=== PATIENT | male | born 1960 | race American Indian/Alaskan Native ===

== ENCOUNTER 2017-08-24 06:08 | Inpatient (IN) | payer OTHER ==
[2017-08-24] MEDS ORDERED: PROVENTIL IH ONE (06:19)
[2017-08-24] MEDS ORDERED: DUONEB *Not for PRN Use IH ONE (07:06)
--- NOTE | 2017-08-24 07:06 | Emergency Department Report ---
HPI - General Chief Complaint: Dyspnea/Respdistress Time Seen by Provider: 08/24/17 07:01 - HPI HPI: This is a 56-year-old male who presents to the emergency department from home with complaint of shortness of breath that woke him from sleep. He did not take anything for his symptoms prior to presentation. He is feeling slightly better but still has some mild shortness of breath. He had some mild chest discomfort at the same time. He presents with very elevated blood pressure. He has a history of diabetes, CVA, hypertension, sleep apnea. While he says he did sleep with the CPAP machine this evening, he is otherwise been noncompliant with his medications. He does not have a primary care physician. He is a tobacco smoker but denies any illicit drug use. No recent travel or sick contacts at home. ED Past Medical Hx - Past Medical History Hx Hypertension: Yes Hx CVA: Yes Hx Diabetes: Yes Additional medical history: Sleep Apnea - Surgical History Hx Appendectomy: Yes - Social History Smoking Status: Current Every Day Smoker Substance Use Type: None - Medications Home Medications: Home Medications Medication Instructions Recorded Confirmed Last Taken Type Aspirin BABY CHEW TAB 81 mg PO DAILY 08/24/17 08/24/17 Unknown History Insulin Glargine,Hum.rec.anlog 20 unit SQ DAILY 08/24/17 08/24/17 Unknown History [Lantus] Lisinopril 20 mg PO DAILY 08/24/17 08/24/17 Unknown History metFORMIN 1,000 mg PO BID 08/24/17 08/24/17 Unknown History ED Review of Systems ROS: Stated complaint: WES,SOB Other details as noted in HPI Comment: All other systems reviewed and negative Constitutional: denies: chills, fever Eyes: denies: eye pain, eye discharge, vision change ENT: denies: ear pain, throat pain Respiratory: shortness of breath. denies: cough Cardiovascular: chest pain. denies: palpitations Gastrointestinal: denies: abdominal pain, nausea, diarrhea Genitourinary: denies: urgency, dysuria Musculoskeletal: denies: back pain, joint swelling, arthralgia Skin: denies: rash, lesions Neurological: denies: headache, weakness, paresthesias Physical Exam - Physical Exam Vital Signs: Vital Signs 08/24/17 08/24/17 06:19 06:32 Temperature 97.8 F Pulse Rate 99 H Pulse Rate [ 85 Anterior Bilateral Throughout] Respiratory 28 H Rate Respiratory 20 Rate [Anterior Bilateral Throughout] Blood Pressure 208/107 O2 Sat by Pulse 88 Oximetry Physical Exam: GENERAL: The patient is well-developed well-nourished. HENT: Normocephalic. Atraumatic. Patient has moist mucous membranes. EYES: Extraocular motions are intact. Pupils equal reactive to light bilaterally. NECK: Supple. Trachea is midline. CHEST/LUNGS: Slightly coarse breath sounds. There is tachypnea but no excessive muscle use. There is no respiratory distress noted. HEART/CARDIOVASCULAR: Regular. There is no tachycardia. There is no gallop rub or murmur. ABDOMEN: Abdomen is soft, nontender. Patient has normal bowel sounds. There is no abdominal distention. Obese habitus. SKIN: Mild pitting edema to the bilateral distal lower extremities. NEURO: The patient is awake, alert, and oriented. The patient is cooperative. The patient has no focal neurologic deficits. The patient has normal speech. MUSCULOSKELETAL: There is no tenderness or deformity. There is no limitation range of motion. There is no evidence of acute injury. ED Course Vital Signs 08/24/17 08/24/17 06:19 06:32 Temperature 97.8 F Pulse Rate 99 H Pulse Rate [ 85 Anterior Bilateral Throughout] Respiratory 28 H Rate Respiratory 20 Rate [Anterior Bilateral Throughout] Blood Pressure 208/107 O2 Sat by Pulse 88 Oximetry ED Medical Decision Making - Lab Data Result diagrams: 08/24/17 07:01 08/24/17 07:01 - EKG Data -: EKG Interpreted by Me EKG shows normal: sinus rhythm, axis (LAD), intervals, QRS complexes (left anterior fascicular block, LVH, isolated T wave inversion to lead 1) Rate: normal - EKG Data When compared to previous EKG there are: previous EKG unavailable Interpretation: other (sinus rhythm, left axis deviation, left anterior fascicular block, LVH) - Radiology Data Radiology results: report reviewed, image reviewed interpreted by me: Chest x-ray shows some mild cardiomegaly and pulmonary vascular congestion. No obvious pneumonia. CT angiography of the chest including 3-D reconstructed images. History: Shortness of breath. Findings: The contrast bolus is suboptimal, but no evidence of pulmonary emboli is seen. There are bilateral pleural effusions, larger on the right. Several small blebs are seen bilaterally. Prominence of the interstitium is seen in the lower lung zones. Prominent lymph nodes are seen in the left para-aortic region. Impression: 1. No evidence of pulmonary emboli with above-described technical limitations. 2. Bilateral pleural effusions. Transcribed By: FAROOQ Dictated By: JONNY BUNN MD Electronically Authenticated By: JONNY BUNN MD Signed Date/Time: 08/24/17 0836 - Medical Decision Making This patient presented with some acute shortness breath started earlier this morning as well as some mild chest pain. EKG shows a left anterior fascicular block but no ST elevation MD. First troponin was negative. BNP was greater than 500. D-dimer was elevated and equivocal so CT angiography of the chest was done that did not show any pulmonary embolism or dissection but did show bilateral pleural effusions. He was given some aspirin to protect the heart, Lasix to start diuresis and will be admitted to the hospital for further evaluation and treatment and has been accepted for admission by the hospitalist service. - Differential Diagnosis CHF, MD, PE, pneumonia Critical Care Time: No Critical care attestation.: If time is entered above; I have spent that time in minutes in the direct care of this critically ill patient, excluding procedure time. ED Disposition Clinical Impression: Hypertensive urgency, Shortness of breath Chest pain Qualifiers: Chest pain type: unspecified Qualified Code(s): R07.9 - Chest pain, unspecified CHF (congestive heart failure) Qualifiers: Congestive heart failure type: unspecified congestive heart failure type Congestive heart failure chronicity: acute Qualified Code(s): I50.9 - Heart failure, unspecified Disposition: OP ADMIT IP TO THIS HOSP Is pt being admited?: Yes Condition: Stable Instructions: Chest Pain (ED) Referrals: PRIMARY CARE, [Primary Care Provider] - 3-5 Days Time of Disposition: 11:26
[2017-08-24 07:29] LABS: Basophils % (Auto) 0.8 % (0.0-1.8); Eosinophils % (Auto) 2.5 % (0.0-4.3); Hematocrit 43.8 % (35.5-45.6); Hemoglobin 14.7 gm/dl (11.8-15.2); Mean Corpuscular HGB Conc 34 % (32-34); Mean Corpuscular Hemoglobin 31 pg (28-32); Mean Corpuscular Volume 94 fl (84-94); Platelet Count 144 K/mm3 (140-440); Red Blood Count 4.68 M/mm3 (3.65-5.03); Red Cell Distribution Width 13.3 % (13.2-15.2); White Blood Count 5.9 K/mm3 (4.5-11.0)
[2017-08-24 07:35] LABS: Anion Gap 18 mmol/L; BUN/Creatinine Ratio 13; Blood Urea Nitrogen 13 mg/dL (9-20); Calcium 8.7 mg/dL (8.4-10.2); Carbon Dioxide 26 mmol/L (22-30); Chloride 99.2 mmol/L (98-107); Glucose 237 mg/dL (75-100); Potassium 4.1 mmol/L (3.6-5.0); Sodium 139 mmol/L (137-145)
[2017-08-24] MEDS ORDERED: NACL ONE (07:59)
--- NOTE | 2017-08-24 08:51 | Cat Scan Report ---
CT angiography of the chest including 3-D reconstructed images. History: Shortness of breath. Findings: The contrast bolus is suboptimal, but no evidence of pulmonary emboli is seen. There are bilateral pleural effusions, larger on the right. Several small blebs are seen bilaterally. Prominence of the interstitium is seen in the lower lung zones. Prominent lymph nodes are seen in the left para-aortic region. Impression: 1. No evidence of pulmonary emboli with above-described technical limitations. 2. Bilateral pleural effusions.
--- NOTE | 2017-08-24 09:07 | XRay Report ---
CHEST 2 VIEWS INDICATION: Shortness of breath. COMPARISON: None similar at this institution. FINDINGS: Frontal and lateral chest radiographs demonstrate slight exaggerated cardiomediastinal silhouette and grossly clear lungs, given the technique. Minimal fluid or thickening along the right minor fissure. Intact bones. CONCLUSION: No significant acute chest process, as described. Thank you for the opportunity to participate in this patient's care.
[2017-08-24] MEDS ORDERED: LASIX IV ONE (09:21)
--- NOTE | 2017-08-24 11:16 | History and Physical Report ---
History of Present Illness Date of examination: 08/24/17 Date of admission: 08/24/2017 Chief complaint: Shortness of breath History of present illness: Patient is a 56 years old male with past medical history of hypertension, diabetes mellitus, COPD and smoker who presents to the emergency department with complaining of shortness of breath. Until yesterday patient was at his normal baseline state of health. Patient developed difficulty of breathing yesterday and he has had progressive worsening of shortness of breath. This morning while going to the bathroom, shortly after, he felt like he could not catch his breath and got worried so called 911 and brought him to the Emergency Department. She is not on oxygen at home. He denies chest pain. Patient denies she has had no fevers, chills, or night sweats. No hx of recurrent pneumonia. He has no sick contact, TB exposure. He use to have 1-2 pillow, orthopnea and PEREZ but is currently denying PND, abdominal distention, or peripheral edema. Past History Past Medical History: diabetes, hypertension Past Surgical History: No surgical history Social history: smoking. denies: alcohol abuse Family history: diabetes, hypertension Medications and Allergies Allergies Allergy/AdvReac Type Severity Reaction Status Date / Time No Known Allergies Allergy Verified 08/24/17 07:14 Home Medications Medication Instructions Recorded Confirmed Last Taken Type Aspirin BABY CHEW TAB 81 mg PO DAILY 08/24/17 08/24/17 Unknown History Insulin Glargine,Hum.rec.anlog 20 unit SQ DAILY 08/24/17 08/24/17 Unknown History [Lantus] Lisinopril 20 mg PO DAILY 08/24/17 08/24/17 Unknown History metFORMIN 1,000 mg PO BID 08/24/17 08/24/17 Unknown History Active Meds: Active Medications Acetaminophen (Tylenol) 650 mg PO Q4H PRN PRN Reason: Pain MILD(1-3)/Fever >100.5/KENNEDY Bisacodyl (Dulcolax) 10 mg MN QDAY PRN PRN Reason: Constipation unrelieved by MOM Review of Systems Constitutional: no weight loss, no weight gain, no fever, no chills Ears, nose, mouth and throat: no ear pain, no ear discharge, no decreased hearing, no nose pain Cardiovascular: shortness of breath, dyspnea on exertion, no chest pain, no orthopnea Respiratory: cough, shortness of breath, dyspnea on exertion Gastrointestinal: no diarrhea, no constipation, no change in bowel habits Genitourinary Male: no discharge, no urinary frequency, no urinary hesitancy, no nocturia Musculoskeletal: no shooting arm pain, no arm numbness/tingling, no low back pain Integumentary: no sores, no wounds, no jaundice Neurological: no parathesias, no numbness, no tingling, no seizures Psychiatric: no change in sleep habits, no sleep disturbances, no insomnia, no hypersomnia, no change in appetite Endocrine: no excessive thirst, no polydipsia, no polyuria, no nocturia Hematologic/Lymphatic: no easy bruising, no easy bleeding Allergic/Immunologic: no allergic rhinitis, no wheezing Exam - Constitutional Vitals: Temp Pulse Resp BP Pulse Ox 99.5 F 81 15 175/106 100 08/24/17 07:25 08/24/17 09:30 08/24/17 09:30 08/24/17 09:30 08/24/17 09:30 General appearance: Present: mild distress, other (on 2LNC with Spo2>95%) - EENT Eyes: Present: PERRL ENT: hearing intact - Neck Neck: Present: supple - Respiratory Respiratory effort: normal Respiratory: bilateral: rales, wheezing - Cardiovascular Rhythm: regular Heart Sounds: Present: S1 & S2 - Abdominal General gastrointestinal: Present: soft, non-tender Male genitourinary: Present: deferred - Rectal Rectal Exam: deferred - Integumentary Integumentary: Present: clear, warm, dry - Musculoskeletal Musculoskeletal: strength equal bilaterally - Psychiatric Psychiatric: appropriate mood/affect - Neurologic Neurologic: CNII-XII intact - Allied Health Allied health notes reviewed: nursing Results - Labs CBC & Chem 7: 08/24/17 07:01 08/24/17 07:01 Labs: Laboratory Last Values WBC 5.9 K/mm3 (4.5-11.0) 08/24/17 07:01 RBC 4.68 M/mm3 (3.65-5.03) 08/24/17 07:01 Hgb 14.7 gm/dl (11.8-15.2) 08/24/17 07:01 Hct 43.8 % (35.5-45.6) 08/24/17 07:01 MCV 94 fl (84-94) 08/24/17 07:01 MCH 31 pg (28-32) 08/24/17 07:01 MCHC 34 % (32-34) 08/24/17 07:01 RDW 13.3 % (13.2-15.2) 08/24/17 07:01 Plt Count 144 K/mm3 (140-440) 08/24/17 07:01 Lymph % (Auto) 39.1 % (13.4-35.0) H 08/24/17 07:01 [place] % (Auto) 8.1 % (0.0-7.3) H 08/24/17 07:01 Eos % (Auto) 2.5 % (0.0-4.3) 08/24/17 07:01 Baso % (Auto) 0.8 % (0.0-1.8) 08/24/17 07:01 Lymph # 2.3 K/mm3 (1.2-5.4) 08/24/17 07:01 [place] # 0.5 K/mm3 (0.0-0.8) 08/24/17 07:01 Eos # 0.2 K/mm3 (0.0-0.4) 08/24/17 07:01 Baso # 0.0 K/mm3 (0.0-0.1) 08/24/17 07:01 Seg Neutrophils % 49.5 % (40.0-70.0) 08/24/17 07:01 Seg Neutrophils # 2.9 K/mm3 (1.8-7.7) 08/24/17 07:01 D-Dimer 319.49 ng/mlDDU (0-234) H 08/24/17 07:07 VBG pH 7.371 (7.320-7.420) 08/24/17 07:01 Sodium 139 mmol/L (137-145) 08/24/17 07:01 Potassium 4.1 mmol/L (3.6-5.0) 08/24/17 07:01 Chloride 99.2 mmol/L (98-107) 08/24/17 07:01 Carbon Dioxide 26 mmol/L (22-30) 08/24/17 07:01 Anion Gap 18 mmol/L 08/24/17 07:01 BUN 13 mg/dL (9-20) 08/24/17 07:01 Creatinine 1.0 mg/dL (0.8-1.5) 08/24/17 07:01 Estimated GFR > 60 ml/min 08/24/17 07:01 BUN/Creatinine Ratio 13 % 08/24/17 07:01 Glucose 237 mg/dL (75-100) H 08/24/17 07:01 POC Glucose 228 (70-105) H 08/24/17 06:18 Calcium 8.7 mg/dL (8.4-10.2) 08/24/17 07:01 Troponin T 0.010 ng/mL (0.00-0.029) 08/24/17 07:01 NT-Pro-B Natriuret Pep 570.9 pg/mL (0-900) 08/24/17 07:01 - Imaging and Cardiology Chest x-ray: image reviewed CT scan - chest: image reviewed (bilateral pleural effusion ) Assessment and Plan Assessment and plan: Patient is a 56 years old male with past medical history of hypertension, diabetes mellitus, COPD and smoker who presents to the emergency department with complaining of shortness of breath. Acute respiratory failure with hypoxia Patient oxygen saturation improved with 2LNC; currently SPO2 98%. No acute respiratory distress noted. Aggressive Nebulizers/Inhalers ABG when necessary Oxygen supplement Supportive care New-onset Congestive heart failure Xray showed bilateral pleural effusion Echocardiogram ordered Started on Diuresis, beta blockers and ACEI/ARB Strict I&O's and daily weights Low-sodium/cardiac diet/fluid restriction Closely monitor electrolytes Cardiology consult Acute COPD exacerbation Started on Duoneb every 6 hours Started IV steroid Solumedrol Initiated empiric Levaquin Oxygen as necessary Diabetes mellitus Accu-Chek before meals and at bedtime Sliding scale insulin/NovoLog ADA carbohydrate consistent diet We will obtain A1c Hypertensive urgency Continue home antihypertensive medications Closely monitor blood pressure Elevated D-dimer CTA no evidence of pulmonary embolism We will obtain VL LE Doppler Tobacco abuse Smoking cessation counseling done. Patient strongly advised to quit. DVT prophylaxis Lovenox Advance Directives: Yes VTE prophylaxis?: Chemical Contraindication Mechanical VTE Prophylaxis: Treatment Not Indicated Plan of care discussed with patient/family: Yes
[2017-08-24] MEDS ORDERED: PROVENTIL IH PRN (11:18)
[2017-08-24] MEDS ORDERED: NITROSTAT SL PRN (11:29)
[2017-08-24] MEDS ORDERED: D50W (25GM) Syringe IV PRN (11:35)
[2017-08-24] MEDS ORDERED: TYLENOL PO PRN (12:00)
[2017-08-24] MEDS ORDERED: DULCOLAX PR PRN (12:00)
--- NOTE | 2017-08-24 13:37 | Event Note ---
Date: 08/24/17 Detailed cardiology consultation dictated. A: #1: Acute heart failure #2: Uncontrolled HTN #3: Elevated DDimer #4: DM #5: Tobacco use P: Obtain echo. Optimize anti-hypertensive regimen. Consider ischemic evaluation prior to discharge. Priscilla CUMMINS NP / DR. QUEEN
[2017-08-24] MEDS: DUONEB *Not for PRN Use IH SCH ×3 (14:11→19:56)
[2017-08-24] MEDS: LEVAQUIN 750MG/150ML 750 MG/150 ML BAG IV SCH (14:19)
[2017-08-24] MEDS: NOVOLOG SUB-Q SCH ×2 (16:20→21:55)
[2017-08-24] MEDS ORDERED: GLUCOPHAGE PO SCH (17:00)
[2017-08-24] MEDS: LASIX IV SCH (17:17)
[2017-08-24] MEDS: LOPRESSOR PO SCH (21:16)
[2017-08-24] MEDS: K-DUR PO SCH (21:16)
[2017-08-24] MEDS ORDERED: COREG PO SCH (22:00)
[2017-08-24] MEDS ORDERED: LEVEMIR SUB-Q SCH (22:00)
[2017-08-24] MEDS ORDERED: LOPRESSOR PO SCH (22:00)
[2017-08-24] MEDS ORDERED: NON-FORMULARY (Metformin 1,000 MG) PO SCH (22:00)
--- NOTE | 2017-08-25 04:23 | Consultation ---
REQUESTING PHYSICIAN: Dr. Godoy. CONSULTING PHYSICIAN: Dr. Carpenter. HISTORY OF PRESENT ILLNESS: This is a 56-year-old -[place] male who was admitted to the hospital with complaints of shortness of breath for further evaluation and management. History is not obtained from the patient and review of records. The patient said that he has no history of hypertension, diabetes mellitus and COPD. Apparently, he has not been taking any medication for the past 2-3 months as he did not have any insurance. Then, yesterday, that is the day prior to admission to the hospital, he started noticing dyspnea even at rest. Then, this morning, he was very dyspneic and could barely make it to the bathroom and back. So he called 911 and they brought him to the Emergency Room. The patient was then admitted to the hospital with possible congestive heart failure and acute exacerbation of the COPD. The patient at this time denies any chest pain, pressure, tightness, heaviness, etc. Typical orthopnea noted. No PND. No palpitations, claudication, dizziness or syncope. He did not have much edema according to him. The patient denied any prior history of similar problems. He has not checked his blood pressure for the past few months. He did notice some exertional dyspnea, though prior to coming to the hospital. The patient denied any myocardial infarction or congestive heart failure in the past. PAST MEDICAL HISTORY: Includes: 1. Hypertension. 2. Diabetes mellitus. 3. Chronic obstructive lung disease. FAMILY HISTORY: Positive for hypertension and diabetes. SOCIAL HISTORY: The patient is unemployed at the present time. He smokes 1 pack of cigarettes per day. Nonalcoholic. ALLERGIES: No known to medications. MEDICATIONS: At the time of admission, the patient was on no medications. REVIEW OF SYSTEMS: CARDIOVASCULAR: As described above. RESPIRATORY: The patient does give history of wheezing and asthma in the past. GASTROINTESTINAL: No complaints at this time. GENITOURINARY: No complaints at this time. NEUROLOGICAL: Unremarkable. PHYSICAL EXAMINATION: GENERAL: This is a 56-year-old -[place] male who is now admitted to the hospital in the Emergency Room with complaints of sudden onset of severe dyspnea for further evaluation and management. GENERAL: The patient is conscious, alert, oriented, afebrile. VITAL SIGNS: Normal, but blood pressure was elevated. It was 175/106, heart rate was 81 per minute and regular. SKIN: Warm and dry. HEENT: Pupils reactive. NECK: Supple. Both carotids well palpable. No definite bruit. No JVD. CHEST: Distant breath sounds. Prolonged expiration. A few rales in the lung bases. No rhonchi. CARDIOVASCULAR: S1, S2 heard. Grade 1/6 systolic murmur at the aortic area and left sternal border. No diastolic murmur, no gallop. ABDOMEN: Soft, obese, nontender. No palpable masses. Bowel sounds heard well. EXTREMITIES: No edema, no calf tenderness. Good femoral pulse. NEUROLOGIC: Evaluation grossly within normal limits. RECTAL: Not done at this time. EKG done showed normal sinus rhythm, no acute changes. Chest x-ray was unremarkable. The patient had a CT scan of the chest, which showed no pulmonary embolism. Bilateral pleural effusion noted. LABORATORY DATA: The patient's CBC was within normal limits. CMP showed a glucose of 237, BUN was 13, creatinine 1.0. D-dimer was elevated at 319. Creatinine was 1.0. Glucose 237 and proBNP was 570, troponin 0.010. IMPRESSION: This is a 56-year-old male -[place] male with history of hypertension, diabetes and chronic obstructive lung disease and smoking who now presented to the hospital with complaints of severe shortness of breath who wanted duration for further evaluation and management. At this time, the patient's condition appears stable. His dyspnea has improved. The patient has not been taking any of his medications. His blood pressure was elevated at the time of admission. History and findings are consistent with congestive heart failure. I explained this to the patient. I agree with the present management. Even though D-dimer was elevated, CT scan of the chest showed no pulmonary embolism. The patient's renal function is normal. PLAN: We will continue present medications. Our goal is to get the blood pressure under control. Treat congestive heart failure. Then, consider doing a stress thallium test to rule out any underlying coronary artery disease since he has not had any cardiac workup done in the recent past. Pros and cons were explained to the patient. The patient expressed understanding. Meanwhile, we will closely monitor him for any signs of congestive heart failure. I had a long discussion with the patient. I explained to the patient it is very important for him to take his medications regularly and keep the blood pressure under control to avoid problems like cerebrovascular accident, congestive heart failure, renal insufficiency, etc. The patient expressed understanding, then the patient told me that he had a cerebrovascular accident in 10/2013. We do not have those results available at the present time. The patient was also encouraged to stay on a strict low salt diet, try and lose weight. We will follow the patient along with you. Thank you very much for this consultation. JOB# [id number] GERMAIN/KONSTANTIN
[2017-08-25] MEDS: LASIX IV SCH ×2 (05:26→18:43)
[2017-08-25 05:30] LABS: Basophils % (Auto) 0.3 % (0.0-1.8); Eosinophils % (Auto) 0.6 % (0.0-4.3); Hematocrit 43.8 % (35.5-45.6); Mean Corpuscular HGB Conc 34 % (32-34); Mean Corpuscular Hemoglobin 32 pg (28-32); Mean Corpuscular Volume 95 fl (84-94); Red Blood Count 4.63 M/mm3 (3.65-5.03); Red Cell Distribution Width 13.6 % (13.2-15.2)
[2017-08-25 05:31] LABS: Platelet Count 162 K/mm3 (140-440)
[2017-08-25 06:07] LABS: BUN/Creatinine Ratio 19; Blood Urea Nitrogen 19 mg/dL (9-20); Calcium 9.3 mg/dL (8.4-10.2); Carbon Dioxide 26 mmol/L (22-30); Chloride 97.1 mmol/L (98-107); Cholesterol 179 mg/dL (50-199); Glucose 249 mg/dL (75-100); HDL Cholesterol 50 mg/dL (40-59); LDL Cholesterol,Direct 112 mg/dL (50-130); Sodium 139 mmol/L (137-145); Triglycerides 89 mg/dL (2-149)
[2017-08-25 06:20] LABS: Anion Gap 21 mmol/L; Potassium 5.4 mmol/L (3.6-5.0)
--- NOTE | 2017-08-25 09:41 | Progress Note ---
Assessment and Plan Assessment and plan: Patient is a 56 years old male with past medical history of hypertension, diabetes mellitus, COPD and smoker who presents to the emergency department with complaining of shortness of breath. Acute respiratory failure with hypoxia * Patient oxygen saturation improved with 2LNC; currently SPO2 98%. No acute respiratory distress noted. Wean O2 * Aggressive Nebulizers/Inhalers New-onset Congestive heart failure * Presumed Systolic, cardiology consulted * Xray showed bilateral pleural effusion, Echocardiogram ordered * Continue Diuresis, beta blockers and ACEI/ARB * Strict I&O's and daily weights * Low-sodium/cardiac diet/fluid restriction * Ischemic evaluation per cardiology prior to discharge * Closely monitor electrolytes Acute COPD exacerbation * Started on Duoneb every 6 hours * Started IV steroid Solumedrol Will taper * Initiated empiric Levaquin Hyperkalemia * Expect to correct with diuresis, will monitor Pleural Effusion * Repeat xray prior to discharge to see if improved Diabetes mellitus With Hyperglycemia * Accu-Chek before meals and at bedtime * Sliding scale insulin/NovoLog, add noctural long acting insulin Stop Metformin while inhouse and resume on discharge. * ADA carbohydrate consistent diet * AIC noted at 8 Hypertensive urgency * Continue home antihypertensive medications * Closely monitor blood pressure Elevated D-dimer * CTA no evidence of pulmonary embolism * We will obtain VL LE Doppler Mobid obesity * Counselling provided on need to lose weight Tobacco abuse * Smoking cessation counseling done 15 mins. Patient strongly advised to quit. DVT prophylaxis Lovenox History Interval history: Patient seen and examined today in no acute distress. Denies any chest pain nausea vomiting or diarrhea at this time. Denies any shortness of breath at this time were reported or remarkable story on admission. Continues to smoke tobacco unfortunately. Hospitalist Physical - Physical exam Narrative exam: VITAL SIGNS: Reviewed. GENERAL: The patient appeared well nourished and normally developed. Vital signs as documented. HEAD: No signs of head trauma. EYES: Pupils are equal. Extraocular motions intact. EARS: Hearing grossly intact. MOUTH: Oropharynx is normal. NECK: No adenopathy, no JVD. CHEST: Chest with diminshed breath sounds bilaterally. No wheezes, rales, or rhonchi. CARDIAC: Regular rate and rhythm. S1 and S2, without murmurs, gallops, or rubs. VASCULAR: No Edema. Peripheral pulses normal and equal in all extremities. ABDOMEN: Soft, without detectable tenderness. No sign of distention. No rebound or guarding, and no masses palpated. Bowel Sounds normal. MUSCULOSKELETAL: Good range of motion of all major joints. Extremities without clubbing, cyanosis or edema. NEUROLOGIC EXAM: Alert and oriented x 3. No focal sensory or strength deficits. Speech normal. Follows commands. PSYCHIATRIC: Mood normal. SKIN: No rash or lesions. - Constitutional Vitals: Temp Pulse Resp BP Pulse Ox 98.4 F 80 19 147/81 97 08/25/17 08:15 08/25/17 08:15 08/25/17 08:15 08/25/17 08:15 08/25/17 08:15 General appearance: Present: mild distress, other (on 2LNC with Spo2>95%) Results - Labs CBC & Chem 7: 08/25/17 05:14 08/26/17 05:34 Labs: Laboratory Last Values WBC 8.0 K/mm3 (4.5-11.0) 08/25/17 05:14 RBC 4.63 M/mm3 (3.65-5.03) 08/25/17 05:14 Hgb 15.0 gm/dl (11.8-15.2) 08/25/17 05:14 Hct 43.8 % (35.5-45.6) 08/25/17 05:14 MCV 95 fl (84-94) H 08/25/17 05:14 MCH 32 pg (28-32) 08/25/17 05:14 MCHC 34 % (32-34) 08/25/17 05:14 RDW 13.6 % (13.2-15.2) 08/25/17 05:14 Plt Count 162 K/mm3 (140-440) 08/25/17 05:14 Lymph % (Auto) 13.0 % (13.4-35.0) L 08/25/17 05:14 Sibley % (Auto) 2.2 % (0.0-7.3) 08/25/17 05:14 Eos % (Auto) 0.6 % (0.0-4.3) 08/25/17 05:14 Baso % (Auto) 0.3 % (0.0-1.8) 08/25/17 05:14 Lymph # 1.0 K/mm3 (1.2-5.4) L 08/25/17 05:14 Sibley # 0.2 K/mm3 (0.0-0.8) 08/25/17 05:14 Eos # 0.0 K/mm3 (0.0-0.4) 08/25/17 05:14 Baso # 0.0 K/mm3 (0.0-0.1) 08/25/17 05:14 Seg Neutrophils % 83.9 % (40.0-70.0) H 08/25/17 05:14 Seg Neutrophils # 6.7 K/mm3 (1.8-7.7) 08/25/17 05:14 D-Dimer 319.49 ng/mlDDU (0-234) H 08/24/17 07:07 VBG pH 7.371 (7.320-7.420) 08/24/17 07:01 Sodium 139 mmol/L (137-145) 08/25/17 05:14 Potassium 5.4 mmol/L (3.6-5.0) H D 08/25/17 05:14 Chloride 97.1 mmol/L (98-107) L 08/25/17 05:14 Carbon Dioxide 26 mmol/L (22-30) 08/25/17 05:14 Anion Gap 21 mmol/L 08/25/17 05:14 BUN 19 mg/dL (9-20) 08/25/17 05:14 Creatinine 1.0 mg/dL (0.8-1.5) 08/25/17 05:14 Estimated GFR > 60 ml/min 08/25/17 05:14 BUN/Creatinine Ratio 19 % 08/25/17 05:14 Glucose 249 mg/dL (75-100) H 08/25/17 05:14 POC Glucose 282 (70-105) H 08/24/17 21:18 Hemoglobin A1c 8.0 % (4-6) H 08/24/17 07:01 Calcium 9.3 mg/dL (8.4-10.2) 08/25/17 05:14 Magnesium 1.70 mg/dL (1.7-2.3) 08/25/17 05:14 Troponin T 0.010 ng/mL (0.00-0.029) 08/24/17 07:01 NT-Pro-B Natriuret Pep 570.9 pg/mL (0-900) 08/24/17 07:01 Triglycerides 89 mg/dL (2-149) 08/25/17 05:14 Cholesterol 179 mg/dL (50-199) 08/25/17 05:14 LDL Cholesterol Direct 112 mg/dL (50-130) 08/25/17 05:14 HDL Cholesterol 50 mg/dL (40-59) 08/25/17 05:14 Cholesterol/HDL Ratio 3.58 % 08/25/17 05:14
[2017-08-25] MEDS ORDERED: INSULIN GLARGINE HUM REC ANLOG 20 UNIT SQ SCH (10:00)
[2017-08-25] MEDS ORDERED: NON-FORMULARY (Aspirin Baby Chew Tab 81 MG) PO SCH (10:00)
[2017-08-25] MEDS ORDERED: NON-FORMULARY (Lisinopril 20 MG) PO SCH (10:00)
[2017-08-25] MEDS: NOVOLOG SUB-Q SCH ×4 (10:18→22:58)
[2017-08-25] MEDS: K-DUR PO SCH (10:19)
[2017-08-25] MEDS: BABY ASPIRIN PO SCH (10:19)
[2017-08-25] MEDS: ZESTRIL PO SCH (10:19)
[2017-08-25] MEDS: LOPRESSOR PO SCH ×2 (10:20→22:51)
[2017-08-25] MEDS: LEVAQUIN 750MG/150ML 750 MG/150 ML BAG IV SCH (10:20)
[2017-08-25] MEDS: DUONEB *Not for PRN Use IH SCH ×3 (11:08→21:19)
--- NOTE | 2017-08-25 11:11 | Progress Note ---
Assessment and Plan Assessment: Acute heart failure - improving Uncontrolled HTN - improving Elevated DDimer - chest CTA negative for PE; BLE duplex pending DM Tobacco use Plan: Await echo. Optimize anti-hypertensive regimen - increase lopressor. The patient has been seen in conjunction with Dr. Tuttle who agrees with the assessment and plan of care. Subjective Date of service: 08/25/17 Principal diagnosis: HF; HTN Interval history: Pt resting in bed, states SOB improving. BPs improving. s/p echo this AM. Objective Last Vital Signs Temp 98.4 F 08/25/17 08:15 Pulse 80 08/25/17 08:15 Resp 19 08/25/17 08:15 BP 147/81 08/25/17 08:15 Pulse Ox 97 08/25/17 08:15 - Physical Examination General: Appears Well HEENT: Positive: PERRL, Normocephaly, Mucus Membranes Moist Neck: Positive: neck supple, trachea midline Cardiac: Positive: Reg Rate and Rhythm, S1/S2 Lungs: Positive: clear to auscultation Neuro: Positive: Grossly Intact, Cranial Nerve 2-12 Intact Abdomen: Positive: Unremarkable, Soft, Active Bowel Sounds. Negative: Tender Skin: Positive: Clear. Negative: Rash, Wound Musculoskeletal: No Fluid Collection, No Pain, Normal Range of Motion Extremities: Absent: edema - Labs and Meds Lipids 08/25/17 Range/Units 05:14 Triglycerides 89 (2-149) mg/dL Cholesterol 179 (50-199) mg/dL HDL Cholesterol 50 (40-59) mg/dL Cholesterol/HDL Ratio 3.58 % CBC 08/25/17 Range/Units 05:14 WBC 8.0 (4.5-11.0) K/mm3 RBC 4.63 (3.65-5.03) M/mm3 Hgb 15.0 (11.8-15.2) gm/dl Hct 43.8 (35.5-45.6) % Plt Count 162 (140-440) K/mm3 Lymph # 1.0 L (1.2-5.4) K/mm3 Hemphill # 0.2 (0.0-0.8) K/mm3 Eos # 0.0 (0.0-0.4) K/mm3 Baso # 0.0 (0.0-0.1) K/mm3 Comprehensive Metabolic Panel 11/14/17 Range/Units 05:14 Sodium 139 (137-145) mmol/L Potassium 5.4 H D (3.6-5.0) mmol/L Chloride 97.1 L (98-107) mmol/L Carbon Dioxide 26 (22-30) mmol/L BUN 19 (9-20) mg/dL Creatinine 1.0 (0.8-1.5) mg/dL Glucose 249 H (75-100) mg/dL Calcium 9.3 (8.4-10.2) mg/dL - Imaging and Cardiology EKG: report reviewed, image reviewed Echo: pending - Telemetry EKG Rhythm: Sinus Rhythm
[2017-08-25] MEDS ORDERED: LOPRESSOR PO SCH (11:20)
[2017-08-25] MEDS ORDERED: LOPRESSOR PO ONE (11:21)
--- NOTE | 2017-08-25 13:30 | Event Note ---
Date: 08/25/17 Echo reviewed - EF 35-40%, mild LVH, abnormal LV diastolic function, LA mildly dilated, ? bicuspid AV, trace MR, mild TR, trace OH, RVSP 38mmHg. Will plan for lexiscan MPI stress test in AM to r/o ischemic CMP. NPO after MN. Assessment and plan reviewed with pt. Priscilla CUMMINS NP / DR. QUEEN
--- NOTE | 2017-08-25 16:17 | Vascular Lab Report ---
LOWER EXTREMITY VENOUS DUPLEX: REASON FOR EXAM: Elevated d-dimer. COMMENTS ON THE RIGHT: All veins visualized are freely compressible without evidence of internal echogenicity. Flow is spontaneous and phasic throughout. COMMENTS ON THE LEFT: All veins visualized are freely compressible without evidence of internal echogenicity. Flow is spontaneous and phasic throughout. IMPRESSION: No evidence of acute or chronic deep venous thrombosis in either lower extremity.
[2017-08-25] MEDS ORDERED: LEVEMIR SUB-Q SCH (22:00)
[2017-08-26] MEDS: LASIX IV SCH ×2 (05:56→17:45)
[2017-08-26 06:53] LABS: Anion Gap 20 mmol/L; BUN/Creatinine Ratio 25; Blood Urea Nitrogen 28 mg/dL (9-20); Calcium 9.3 mg/dL (8.4-10.2); Carbon Dioxide 28 mmol/L (22-30); Chloride 95.2 mmol/L (98-107); Glucose 382 mg/dL (75-100); Potassium 4.9 mmol/L (3.6-5.0); Sodium 138 mmol/L (137-145)
[2017-08-26] MEDS: DUONEB *Not for PRN Use IH SCH ×2 (09:36→14:24)
[2017-08-26] MEDS ORDERED: LEXISCAN IV ONE ×2 (09:40→11:00)
[2017-08-26] MEDS ORDERED: LEVAQUIN PO SCH (10:00)
--- NOTE | 2017-08-26 10:04 | Discharge Summary ---
Providers - Providers Date of Admission: 08/24/17 11:12 Attending physician: CELESTE MANN MD 08/24/17 11:20 Consult to Physician [CONS] Routine Consulting Provider: CLEO GERMAIN Reason For Exam: CHF Place consult to:: jessa Notified:: Dr. Shiloh germain Phone number called:: [phone] Was contact made?: Yes If yes, spoke with:: Shiloh Germain Time called:: 16:45 Primary care physician: [employer] Hospitalization Condition: Stable Hospital course: Patient is a 56 years old male with past medical history of hypertension, diabetes mellitus, COPD and smoker who presents to the emergency department with complaining of shortness of breath. Acute respiratory failure with hypoxia * Patient oxygen saturation improved with 2LNC; currently SPO2 98%. No acute respiratory distress noted. Wean O2 * Aggressive Nebulizers/Inhalers New-onset Congestive heart failure * Presumed Systolic, cardiology consulted * Xray showed bilateral pleural effusion, Echocardiogram ordered * Continue Diuresis, beta blockers and ACEI/ARB * Strict I&O's and daily weights * Low-sodium/cardiac diet/fluid restriction * Ischemic evaluation per cardiology prior to discharge * Closely monitor electrolytes Acute COPD exacerbation * Started on Duoneb every 6 hours * Started IV steroid Solumedrol Will taper * Initiated empiric Levaquin Hyperkalemia * Expect to correct with diuresis, will monitor Pleural Effusion * Repeat xray prior to discharge to see if improved Diabetes mellitus With Hyperglycemia * Accu-Chek before meals and at bedtime * Sliding scale insulin/NovoLog, add noctural long acting insulin Stop Metformin while inhouse and resume on discharge. * ADA carbohydrate consistent diet * AIC noted at 8 Hypertensive urgency * Continue home antihypertensive medications * Closely monitor blood pressure Elevated D-dimer * CTA no evidence of pulmonary embolism * We will obtain VL LE Doppler Mobid obesity * Counselling provided on need to lose weight Tobacco abuse * Smoking cessation counseling done 15 mins. Patient strongly advised to quit. DVT prophylaxis Lovenox Disposition: DC- TO HOME OR SELFCARE Time spent for discharge: 35 mins Exam - Constitutional Vitals: Temp Pulse Resp BP Pulse Ox 98.2 F 79 18 164/72 98 08/26/17 04:19 08/26/17 04:19 08/26/17 04:19 08/26/17 04:19 08/26/17 04:19 Plan Activity: advance as tolerated, fall precautions Diet: low fat, low salt, diabetic Special Instructions: record daily weights, record daily BP diary, record blood sugar diary, smoking cessation Follow up with: PRIMARY CAREMD [Primary Care Provider] - 3-5 Days NELSON QUEEN MD [Staff Physician] - 7 Days Prescriptions: Aspirin [Aspirin BABY CHEW TAB] 81 mg PO QDAY #30 tab.chew Fluticasone/Salmeterol [Advair 250-50 Diskus] 1 each IH BID 30 Days Furosemide [Lasix TAB] 40 mg PO QDAY #30 tablet Levofloxacin [Levaquin TAB] 750 mg PO Q24HR #3 tablet Metoprolol [Lopressor TAB] 50 mg PO BID #60 tablet Prednisone [predniSONE 5 mg (6-Day Pack, 21 Tabs)] 5 mg PO .TAPER #1 tab.ds.pk
--- NOTE | 2017-08-26 10:49 | Progress Note ---
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 bicuspid AV, trace MR, mild TR, trace RI, RVSP 38mmHg. Proceed with lexiscan MPI stress test today to r/o ischemic CMP. Possible d/c home this afternoon pending stress test is negative for ischemia. The patient has been seen in conjunction with Dr. Tuttle who agrees with the assessment and plan of care. Subjective Date of service: 08/26/17 Principal diagnosis: HF; HTN Interval history: Pt with no current complaints. for stress test today. Objective Last Vital Signs Temp 98.2 F 08/26/17 04:19 Pulse 79 08/26/17 04:19 Resp 18 08/26/17 04:19 BP 164/72 08/26/17 04:19 Pulse Ox 98 08/26/17 04:19 - Physical Examination General: Appears Well HEENT: Positive: PERRL, Normocephaly, Mucus Membranes Moist Neck: Positive: neck supple, trachea midline Cardiac: Positive: Reg Rate and Rhythm, S1/S2 Lungs: Positive: clear to auscultation Neuro: Positive: Grossly Intact, Cranial Nerve 2-12 Intact Abdomen: Positive: Unremarkable, Soft, Active Bowel Sounds. Negative: Tender Skin: Positive: Clear. Negative: Rash, Wound Musculoskeletal: No Fluid Collection, No Pain, Normal Range of Motion Extremities: Absent: edema - Labs and Meds Comprehensive Metabolic Panel 08/26/17 Range/Units 05:34 Sodium 138 (137-145) mmol/L Potassium 4.9 (3.6-5.0) mmol/L Chloride 95.2 L (98-107) mmol/L Carbon Dioxide 28 (22-30) mmol/L BUN 28 H (9-20) mg/dL Creatinine 1.1 (0.8-1.5) mg/dL Glucose 382 H (75-100) mg/dL Calcium 9.3 (8.4-10.2) mg/dL - Imaging and Cardiology EKG: report reviewed, image reviewed Echo: pending
[2017-08-26] MEDS ORDERED: NOVOLOG SUB-Q ONE (11:00)
[2017-08-26] MEDS: NOVOLOG SUB-Q SCH ×3 (11:30→17:45)
[2017-08-26] MEDS ORDERED: Fluarix Quad 2017-2018(36 MOS+ IM ONE (12:00)
--- NOTE | 2017-08-26 12:46 | Event Note ---
Date: 08/26/17 Stress test this AM negative for ischemia. CMP is presumably nonischemic. Currently stable cardiac status. Pt may discharge home from cardiology standpoint. Follow up in our [place] office with Milagro Story NP, on 09/01/2017 @ 2:00PM. Priscilla CUMMINS NP / DR. QUEEN
[2017-08-26] MEDS: LOPRESSOR PO SCH (14:17)
[2017-08-26] MEDS: BABY ASPIRIN PO SCH (14:17)
[2017-08-26] MEDS: ZESTRIL PO SCH (14:19)
[2017-08-26 18:34] VITALS: BP 158/81
--- NOTE | 2017-08-27 05:16 | Treadmill Report ---
REASON FOR STUDY: Shortness of breath. IMAGING PROTOCOL: Single isotope used. The patient received 10 mCi of Technetium 99m Tetrofosmin for resting image and 28 mCi of Technetium 99m Tetrofosmin for stress imaging. The imaging for the whole procedure was completed 30-90 minutes following the initial injection of Technetium 99m tetrofosmin. The SPECT imaging in the 180 degree arc was performed in the right anterior oblique projection. Computerized reconstruction of the images was performed for analysis. IMAGING RESULTS: Cavity is dilated, both stress and rest. Distribution radionuclide is normal in the anterior, inferior, septal, lateral, and apical regions. Gated SPECT, EF of 35% with moderate global hypokinesis. The patient infused Lexiscan with no EKG changes. SUMMARY: 1. Negative Lexiscan EKG. 2. Cavity is dilated, both stress and rest with normal myocardial perfusion. No significant ischemia. 3. Gated SPECT, ejection fraction 35% with clinic correlate with an echocardiogram. JOB# [id number] MICKY/KONSTANTIN
== END 2017-08-26 18:30 | disposition home or self-care (01) | DRG 291 ==
LOC: ED 06:08 → 4A 11:12
PROVIDERS: ADMIT Internal Medicine; ATTEND Internal Medicine
PROC: 5A09357 Assistance with Respiratory Ventilation, Less than 24 Consecutive Hours, Continuous Positive Airway Pressure (ICD-10-PCS; 2017-08-25)
PROC: 3E0234Z Introduction of Serum, Toxoid and Vaccine into Muscle, Percutaneous Approach (ICD-10-PCS; principal; 2017-08-26)
DX: I11.0 Hypertensive heart disease with heart failure (principal); J96.01 Acute respiratory failure with hypoxia; J44.1 Chronic obstructive pulmonary disease with (acute) exacerbation; Z68.41 Body mass index [BMI] 40.0-44.9, adult; I50.41 Acute combined systolic (congestive) and diastolic (congestive) heart failure; G47.33 Obstructive sleep apnea (adult) (pediatric); I16.0 Hypertensive urgency; E11.65 Type 2 diabetes mellitus with hyperglycemia; E66.01 Morbid (severe) obesity due to excess calories; Z23 Encounter for immunization; Z79.4 Long term (current) use of insulin
CPT/HCPCS: 36415; 71020; 71275; 78452; 80048; 80061; 82805; 82962; 83036; 83735; 83880; 84484; 85025; 85379; 90686; 93005; 93010; 93017; 93306; 93970; 94640; 94660; 96374; 99285; 99406; A9502; J1815; J1818; J1940; J1956; J2785; J2930; Q9967

== ENCOUNTER 2021-10-07 11:35 | Outpatient (CLI) | payer BC ==
--- NOTE | 2021-10-07 13:15 | XRay Report ---
CHEST 2 VIEWS INDICATION / CLINICAL INFORMATION: COUGH. COMPARISON: 08/24/2017 FINDINGS: SUPPORT DEVICES: None. HEART / MEDIASTINUM: Previous median sternotomy and CABG. LUNGS / PLEURA: No significant pulmonary or pleural abnormality. No pneumothorax. ADDITIONAL FINDINGS: No significant additional findings. IMPRESSION: 1. No acute findings. Signer Name: James Pfeiffer MD Signed: 10/07/2021 1:11 PM Workstation Name: [id number]
== END 2021-10-07 11:36 | disposition home or self-care (01) ==
LOC: XRAY 11:35
PROVIDERS: ATTEND Internal Medicine
DX: R05.9 Cough, unspecified (principal)
CPT/HCPCS: 71046